=== PATIENT | male | born 1970 | race African-American/Black ===

== ENCOUNTER 2016-11-04 08:40 | Emergency (ER) | payer BC ==
[~2016-11-04] VITALS: Ht 182.9 cm; Wt 87.0 kg
[2016-11-04 10:05] VITALS: BP 135/99
== END 2016-11-04 10:19 | disposition home or self-care (01) ==
LOC: ER 08:56
DX: H10.023 Other mucopurulent conjunctivitis, bilateral (principal); Z98.890 Other specified postprocedural states
CPT/HCPCS: 99283

== ENCOUNTER 2016-11-14 07:26 | Emergency (ER) | payer BC ==
[~2016-11-14] VITALS: Ht 182.9 cm; Wt 89.0 kg
[2016-11-14 08:30] VITALS: BP 126/93
[2016-11-14] MEDS ORDERED: ACETAMINOPHEN 500MG TABLET PO ONE (09:15)
[2016-11-14] MEDS ORDERED: VISCOUS LIDOCAINE 2% 15 ML UDC MM PRN (09:15)
== END 2016-11-14 09:52 | disposition home or self-care (01) ==
LOC: ER 07:27
DX: J06.9 Acute upper respiratory infection, unspecified (principal)
CPT/HCPCS: 99283; Z7610

== ENCOUNTER 2016-12-28 08:46 | Emergency (ER) | payer BC ==
[~2016-12-28] VITALS: Ht 182.9 cm; Wt 91.0 kg
[2016-12-28 10:47] VITALS: BP 150/99
== END 2016-12-28 10:50 | disposition home or self-care (01) ==
LOC: ER 09:43
DX: R21 Rash and other nonspecific skin eruption (principal); Z98.890 Other specified postprocedural states
CPT/HCPCS: 99283

== ENCOUNTER 2017-09-16 11:12 | Emergency (ER) | payer BC ==
[~2017-09-16] VITALS: Ht 185.4 cm; Wt 89.0 kg
[2017-09-16 11:18] VITALS: BP 137/97
== END 2017-09-16 11:44 | disposition home or self-care (01) ==
LOC: ER 11:28
DX: M79.671 Pain in right foot (principal)
CPT/HCPCS: 23650; 99152; 99281; 99285

== ENCOUNTER 2019-05-06 18:35 | Emergency (ER) | payer BC ==
[~2019-05-06] VITALS: Ht 190.5 cm; Wt 88.0 kg
[2019-05-06] MEDS ORDERED: SODIUM CHLORIDE 0.9% 1,000 ML IV ONE (19:06)
[2019-05-06] MEDS ORDERED: METHYLPREDNISOLONE SOD SUCC 125 MG/2 ML VIAL IV ONE (19:15)
[2019-05-06] MEDS ORDERED: DIPHENHYDRAMINE 50MG/ML VIAL IV ONE (19:15)
[2019-05-06] MEDS ORDERED: FAMOTIDINE 20MG/2ML VIAL IV ONE (19:15)
[2019-05-06 19:31] LABS: BASOPHILS % 0.3 % (0.0-2.0); CHLORIDE 109 mEq/L (98-107); EOSINOPHILS % 4.4 % (0.0-5.0); HEMATOCRIT. 41.2 % (42.0-52.0); HEMOGLOBIN. 14.1 g/dL (14.0-18.0); LYMPHOCYTES % 20.8 % (20.0-50.0); MEAN CORPUSCULAR HEMOGLOBIN 31.8 pg (28.0-32.0); MEAN CORPUSCULAR VOLUME 93.1 fL (80.0-94.0); MEAN PLATELET VOLUME 6.6 fl (7.4-10.4); MONOCYTES % 9.6 % (2.0-8.0); NEUTROPHILS % 64.9 % (40.0-76.0); PLATELET 316 x1000/uL (130-400); RED BLOOD CELL COUNT 4.43 mill/uL (4.7-6.1); RED CELL DISTRIBUTION WIDTH 13.9 % (11.6-14.6)
[2019-05-07] MEDS ORDERED: CLINDAMYCIN HCL 150MG CAPSULE PO SCH
[2019-05-07 01:03] VITALS: BP 132/72
== END 2019-05-07 01:03 | disposition home or self-care (01) ==
LOC: ER 18:35
DX: T78.40XA Allergy, unspecified, initial encounter (principal); L73.9 Follicular disorder, unspecified; X58.XXXA Exposure to other specified factors, initial encounter
CPT/HCPCS: 36415; 80048; 85025; 96374; 96375; 99283; J1200; J2930; J3490; J7030; Z7610